=== PATIENT | female | born 1990 | race Caucasian/White ===

== ENCOUNTER 2017-01-09 21:29 | Emergency (ER) | payer BC ==
[~2017-01-09 21:29] MED LIST: COUMADIN2 MG PO; COUMADIN4 MG PO; CYMBALTA30 MG PO; DULCOLAX STOOL100 MG PR; DURAGESIC1 PATCH .7 TOP; FOLIC ACID1 MG PO; GAS X PO; HUMAPEN LUXURA1 EACH SQ; HUMULIN N100 U/ML SQ; HYDROXYCHLOROQ200 MG PO; IMITREX25 MG PO; LIDODERM30 EA TP; LOVENOX40 MG/0.4 SQ; METHOTREXATE IM; MIRALAX17 GM PO; NORVASC10 MG PO; OXYCODONE/APAP PO; OXYCONTIN20 M1 PO; PERCOCET 10 MG/1 TAB PO; PERCOCET 10/31 UDTAB PO; PHENERGAN12.5 MG PO; PROVENTIL0.83 MG/ML IH; REGLAN10 MG PO; SENNA8.6 M1 PO; SYNTHROID112 MCG PO; SYNTHROID200 MCG PO; SYNTHROID25 MCG PO; ZOFRAN4 MG PO
[2017-01-09] MEDS ORDERED: AMITRIPTYLINE H25 M1 (22:27)
[2017-01-09] MEDS ORDERED: TYLENOL325 M2 PO (22:27)
[2017-01-09] MEDS ORDERED: ALL DAY ALLERGY10 M7 (22:28)
[2017-01-09] MEDS ORDERED: VALIUM5 M1 (22:28)
[2017-01-09] MEDS ORDERED: CLEOCIN HCL300 M1 PO (22:28)
[2017-01-09] MEDS ORDERED: RELPAX40 M1 (22:29)
[2017-01-09] MEDS ORDERED: LOVENOX60 MG/0.1 (22:29)
[2017-01-09] MEDS ORDERED: FEOSOL325 M1 (22:30)
[2017-01-09] MEDS ORDERED: PLAQUENIL200 M1 (22:30)
[2017-01-09] MEDS ORDERED: NEURONTIN300 M1 PO (22:30)
[2017-01-09] MEDS ORDERED: NOVOLIN N100 UNIT/2 (22:30)
[2017-01-09] MEDS ORDERED: DURAGESIC1 EAC1 TP (22:30)
[2017-01-09] MEDS ORDERED: LEVO-T137 MCG (22:31)
[2017-01-09] MEDS ORDERED: CLARITIN10 M6 (22:31)
[2017-01-09] MEDS ORDERED: REGLAN10 M2 (22:31)
[2017-01-09] MEDS ORDERED: PRILOSEC OTC20 M1 (22:32)
[2017-01-09] MEDS ORDERED: ZOFRAN4 M2 (22:32)
[2017-01-09] MEDS ORDERED: OXYCODONE HCL5 M1 PO ×2 (22:33→22:36)
[2017-01-09] MEDS ORDERED: COUMADIN5 M2 (22:34)
[2017-01-09] MEDS ORDERED: PHENERGAN12.5 M2 PO (22:34)
[2017-01-09] MEDS ORDERED: TOPAMAX25 M3 (22:35)
[2017-01-09 22:44] LABS: BASO % 0.2 % (0-2); EOS % 0.2 % (0-7); HCT-HEMATOCRIT 30.6 % (34.0-49.0); HGB-HEMOGLOBIN 10.3 gm/dl (12.0-15.5); IMMATURE GRANULOCYTES ABSOLUTE 0.01 tho/cmm (0-0.03); IMMATURE GRANULOCYTES PERCENT 0.2 % (0-0.3); LYMPH % 31.5 % (20-45); LYMPH ABSOLUTE COUNT 1.5 tho/cmm (0.8-4.5); MCH (MEAN CORPUSCULAR HGB) 26.6 pg (28.0-32.0); MCHC MEAN CORPUSCULAR HGB CONC 33.7 % (32.0-36.0); MCV (MEAN CELL VOLUME) 79.1 fl (82.0-96.0); MEAN PLATELET VOLUME 9.8 cmc (9.4-12.4); MONO % 11.9 % (0-12); MONOCYTE ABSOLUTE COUNT 0.6 tho/cmm (0.0-1.2); NEUTROPHIL ABSOLUTE COUNT 2.6 tho/cmm (1.6-8.0); NEUTROPHIL-AUTOMATED 2.6 tho/cmm (1.6-8.0); PLATELET COUNT 191 tho/cmm (150-450); RED BLOOD COUNT 3.87 mil/cmm (4.00-5.20); RED CELL DISTRIBUTION WIDTH 13.6 % (12.4-16.4); WHITE BLOOD COUNT 4.6 tho/cmm (4.0-10.0)
[2017-01-09 22:46] LABS: INR 1.1 INR (0.9-1.1)
[2017-01-09 22:54] LABS: ANION GAP 13 mmol/L (0-20); BLOOD UREA NITROGEN 8 mg/dl (6-24); CALCIUM 7.9 mg/dl (8.5-10.5); CARBON DIOXIDE-VENOUS 24 mmol/L (22-32); CHLORIDE 107 mmol/l (96-110); CREATININE 0.82 mg/dl (0.50-1.10); GLUCOSE 89 mg/dL (70-110); POTASSIUM 3.8 mmol/L (3.7-5.1); SODIUM 140 mmol/L (135-145); eGFR VALUE FOR BLACK >90 mL/Min
[2017-01-10] MEDS ORDERED: FLAGYL500 M1 PO (00:26)
[2017-01-10] MEDS ORDERED: AMOXICILLIN500 M1 PO (00:26)
== END 2017-01-10 01:00 ==
LOC: EDMED 21:29
PROVIDERS: Emergency Medicine
DX: K04.7 Periapical abscess without sinus (principal); K02.9 Dental caries, unspecified; Z79.01 Long term (current) use of anticoagulants; Z88.0 Allergy status to penicillin
CPT/HCPCS: J0290